=== PATIENT | female | born 1960 | race Caucasian/White ===

== ENCOUNTER 2024-10-30 13:46 | Emergency (ER) | payer SELFPAY ==
[2024-10-30] VITALS (15 sets, daily range): BP systolic 139–165; BP diastolic 72–99; PULSE 59–66; RESP 12–26; TEMP 36.4; O2SAT 97–100
--- NOTE | ~2024-10-30 | CT_ITS ---
EXAMINATION: CT abdomen pelvis w con DATE: 10/30/2024 15:19 INDICATION: Upper abdominal pain. Melena. TECHNIQUE: Computed tomography (CT) of the abdomen and pelvis was performed with 100 mL Omnipaque 350 intravenous contrast. Automated exposure control and iterative reconstruction technique were employe d. The dose-length product was 191.15 mGy-cm. COMPARISON: None. FINDINGS: The visualized portions of the lung bases demonstrate mild atelectasis. No pleural effusion . The heart size is normal. No pericardial effusion. There are bilateral breast implants. The liver, gallbladder, spleen, pancreas, and adrenal glands are normal. There is cortical thinning of the kidne ys. There is a 13 mm cyst in right kidney. There is diverticulosis of the colon without evidence of d iverticulitis. The appendix is normal. There are no pathologically enlarged lymph nodes. There is no free intraperitoneal fluid. There is mild thoracic and lumbar spondylosis. IMPRESSION: 1. No etiology for the patient's symptoms. Reviewed, dictated and finalized at location A. [employer]
[2024-10-30 14:21] LABS: Basophils Percent Auto 0.6 % (0.2-1.2); Eosinophils Absolute Auto 0.1 K/mm3 (0-0.3); Eosinophils Percent Auto 2.2 % (0-4.4); Hematocrit 35.1 % (37.0-47.0); Hemoglobin 11.5 g/dL (12.0-15.0); Immature Granulocyte Absolute 0.02 K/mm3 (0.00-0.031); Immature Granulocyte Percent A 0.4 % (0-0.5); Lymphocytes Absolute Auto 1.65 K/mm3 (0.9-3.2); Lymphocytes Percent Auto 32.8 % (18.3-44.2); Mean Corpuscular HGB Conc 32.8 g/dl (32-36); Mean Corpuscular Hemoglobin 29.3 pg (26-34); Mean Corpuscular Volume 89.3 fl (80-100); Mean Platelet Volume 9.8 fl (7.4-10.4); Monocytes Absolute Auto 0.6 K/mm3 (0.1-0.6); Monocytes Percent Auto 11.5 % (2.6-8.5); Neutrophils Absolute Auto 2.6 K/mm3 (1.3-6.7); Neutrophils Percent Auto 52.5 % (45.5-73.1); Platelet Count Result 287 k/mm3 (150-375); Red Blood Count 3.93 M/mm3 (4.2-5.4); Red Cell Distribution Width 14.6 % (11.5-14.5)
[2024-10-30 14:36] LABS: Alanine Aminotransferase 89 U/L (6-35); Albumin Level 3.7 g/dL (3.5-5.1); Alkaline Phosphatase 96 U/L (38-126); Anion Gap 1 mmol/L (4-12); Aspartate Amino Transferase 87 U/L (14-36); Bilirubin,Total 0.5 mg/dL (0.2-1.3); Blood Urea Nitrogen 18 mg/dL (7-17); Calcium 8.8 mg/dL (8.4-10.2); Carbon Dioxide 24 mmol/L (22-30); Chloride 113 mmol/L (98-107); Estimated CRCL calculation 73 ml/min; Estimated Glomerular Filt Rate > 60; Glucose 116 mg/dL (65-110); Lipase 78 U/L (23-300); Potassium 3.6 mmol/L (3.4-5.0); Sodium 138 mmol/L (137-145)
--- NOTE | 2024-10-30 14:45 | ED_ITS ---
HPI - Abdominal Pain General Chief Complaint: Abdominal Pain Stated Complaint: blood in stool/dizzy/exhaustion Time Seen by Provider: 10/30/24 14:04 Source: patient Mode of arrival: ambulatory Limitations: no limitations History of Present Illness HPI narrative: Patient is a 64-year-old female who presents the ED with report of melena. Patient reports on Saturday, she had fairly significant pain throughout her upper abdomen. States she noticed her stool was dark black that day. She took lansoprazole and pepto bismol and states sx's did improve. She denies current abdominal pain but states her melena has persisted. She brought a stool sample with her today from approximately 30 minutes ago. She denies nausea, vomiting, bright red rectal bleeding, fevers, chest pain. She does note history of previous peptic ulcer. Had colonoscopy 1 year ago which was normal. Related Data Allergies Allergy/AdvReac Type Severity Reaction Status Date / Time No Known Allergies Allergy Verified 10/30/24 14:03 Review of Systems 2 Review of Systems: All systems reviewed & are unremarkable except as noted in HPI. All systems reviewed & are unremarkable except as noted in HPI and below Exam 2 Narrative: GENERAL: Well appearing, thin, non-toxic, in no acute distress. HEAD: Normocephalic, atraumatic. RESPIRATORY: Airway patent, respirations nonlabored. Clear to auscultation bilaterally, no rales, rhonchi, wheezing. CARDIOVASCULAR: Regular rate and rhythm ABDOMINAL: Soft, no tenderness throughout abdomen, nondistended. Normoactive BS. RECTAL: Stool dark in color, guaiac positive. MUSCULOSKELETAL: Moves all extremities. No gross deformities. SKIN: Warm, dry, normal color. NEURO: A&O X3. Speech clear. PSYCHIATRIC: Appropriate mood and affect. Normal interaction. Course Vital Signs Vital signs: Vital Signs Temperature 97.6 F 10/30/24 13:57 Pulse Rate 66 10/30/24 13:57 Respiratory Rate 18 10/30/24 13:57 Blood Pressure 146/72 H 10/30/24 13:57 Pulse Oximetry 99 10/30/24 13:57 Oxygen Delivery Room Air 10/30/24 13:57 Temperature 97.6 F 10/30/24 13:57 Pulse Rate 64 10/30/24 16:16 Respiratory Rate 17 10/30/24 16:16 Blood Pressure 143/88 H 10/30/24 16:15 Pulse Oximetry 97 10/30/24 16:16 Oxygen Delivery Room Air 10/30/24 13:57 MDM - Abdominal Pain MDM Narrative Medical decision making narrative: Patient presented to ED with 2 day history of melena. Reported having upper abdominal pain a few days ago which has since resolved. She does report that she has been taking Pepto-Bismol which has improved for pain, but the melena started before taking Pepto-Bismol. Patient brought in a stool sample which was melanotic, guaiac positive. Vital signs are stable. No evidence of hemodynamic instability. Patient is stable, no evidence of distress. She reports hx of PUD. Protonix given. Cbc without leukocytosis. Hemoglobin is stable but slightly low at 11.5. No records to compare to. Normal platelets. CMP with slight transaminitis. Again no records to compare to. Normal bilirubin and normal lipase. CT scan of abdomen / pelvis was obtained and negative. No distinct abnormalities. Does show diverticulosis, no evidence of diverticulitis. Less suspicious for this being cause of bleeding and was would expect bright red bleeding with this. Suspect PUD, gastritis. Will discuss with GI. Discussed case with Dr. Britt, GI, agreed with plan for outpatient follow-up. Patient to call office make appointment. Will continue patient on Protonix. Discussed lab and imaging findings, overall reassuring workup, GI recommendations with patient and family. They are in agreement with plan. Feels comfortable going home. Given strict return precautions. D/C in stable condition. Medical Records Attestation: I reviewed the patient's medical records. Lab Data Attestation: I reviewed the patient's lab results. 10/30/24 14:12 10/30/24 14:12 Labs: Lab Results 10/30/24 Range/Units 14:12 WBC 5.0 (4.5-10.0) K/mm3 RBC 3.93 L (4.2-5.4) M/mm3 Hgb 11.5 L (12.0-15.0) g/dL Hct 35.1 L (37.0-47.0) % MCV 89.3 (80-100) fl MCH 29.3 (26-34) pg MCHC 32.8 (32-36) g/dl RDW 14.6 H (11.5-14.5) % Plt Count 287 (150-375) k/mm3 MPV 9.8 (7.4-10.4) fl Immature Gran % (Auto) 0.4 (0-0.5) % Neut % (Auto) 52.5 (45.5-73.1) % Lymph % (Auto) 32.8 (18.3-44.2) % [place] % (Auto) 11.5 H (2.6-8.5) % Eos % (Auto) 2.2 (0-4.4) % Baso % (Auto) 0.6 (0.2-1.2) % Lymph # (Auto) 1.65 (0.9-3.2) K/mm3 [place] # (Auto) 0.6 (0.1-0.6) K/mm3 Eos # (Auto) 0.1 (0-0.3) K/mm3 Baso # (Auto) 0.0 (0.0-0.1) K/mm3 Abs Immat Gran (auto) 0.02 (0.00-0.031) K/mm3 Absolute Neuts (auto) 2.6 (1.3-6.7) K/mm3 Absolute Nucleated RBC 0.000 (0.0-0.012) K/mm3 Nucleated RBC % 0.0 (0.0-0.2) % Sodium 138 (137-145) mmol/L Potassium 3.6 (3.4-5.0) mmol/L Chloride 113 H (98-107) mmol/L Carbon Dioxide 24 (22-30) mmol/L Anion Gap 1 L (4-12) mmol/L BUN 18 H (7-17) mg/dL Creatinine 0.50 L (0.7-1.0) mg/dL Estim Creat Clear Calc 73 ml/min Estimated GFR > 60 (59 - ) Glucose 116 H (65-110) mg/dL Calcium 8.8 (8.4-10.2) mg/dL Total Bilirubin 0.5 (0.2-1.3) mg/dL AST 87 H (14-36) U/L ALT 89 H (6-35) U/L Alkaline Phosphatase 96 (38-126) U/L Total Protein 6.0 L (6.3-8.2) g/dL Albumin 3.7 (3.5-5.1) g/dL Lipase 78 (23-300) U/L Blood Type A Positive Antibody Screen Negative Imaging Data Attestation: I personally reviewed and interpreted this imaging study as follows: Radiologist's impression: ITS Impressions Abdomen/Pelvis CT 10/30/24 15:28 IMPRESSION: 1. No etiology for the patient's symptoms. Discharge Plan Discharge Clinical Impression: Melena, Intermittent upper abdominal pain Patient Disposition: Home, Self-Care Condition: Stable Instructions: Antibiotic Form, Gastritis (ED), Diet for Stomach Ulcers and Gastritis (ED), Melena (ED) Additional Instructions: Take Protonix daily as prescribed. Avoid NSAIDs (aspirin, aleve, motrin/ibuprofen/advil), alcohol, spicy foods. Follow-up with GI for further evaluation. Call office to make appointment. Continue to monitor symptoms. Return to the ED if you experience worsening or severe pain, worsening dark black stools, bright red blood in stool, fevers, feeling dizzy or lightheaded, passing out, or any other symptoms of concern. Patient Language: Malaysian Prescriptions: New pantoprazole [Protonix] 20 mg tablet,delayed release (DR/EC) 20 mg PO HS 42 Days Qty: 42 0RF Follow-up/Referrals: Sanjay Mike MD [Physician] - (GI) UNKNOWN,DOCTOR [Primary Care Provider] - Time of Disposition: 16:23
[2024-10-30] MEDS: PANTOPRAZOLE SODIUM IV 40 MG VIAL IV PUSH (14:58)
== END 2024-10-30 16:36 | disposition home or self-care (01) ==
PROVIDERS: Emergency Provider Physician Assistant
DX: K92.1 Melena (principal); R10.10 Upper abdominal pain, unspecified; Z87.11 Personal history of peptic ulcer disease
CPT/HCPCS: 36415; 74177; 80053; 83690; 85025; 86850; 86900; 86901; 96374; 99284; J2470; Q9967